=== PATIENT | female | born 1950 | race Caucasian/White ===

== ENCOUNTER 2017-02-15 10:17 | Outpatient (CLI) | payer MEDICARE, OTHER ==
--- NOTE | 2017-02-22 14:29 | MMO ---
BILATERAL SCREENING MAMMOGRAM: HISTORY: A 66-year-old female for screening mammography. COMPARISON: 03/20/14, 12/13/11. FINDINGS: Bilateral MLO and CC views of the breasts show predominantly fatty replaced breast parenchyma. Ther e are a few benign-appearing calcifications in both breasts. There is no evidence of suspicious mas s, suspicious clustered microcalcifications, or area of architectural distortion. Interpretation of this mammogram was performed with the assistance of computer-aided detection. IMPRESSION: BI-RADS category 2 - benign findings. Annual screening mammography is recommended. POS: [facility]
== END 2017-02-15 10:18 | disposition home or self-care (01) ==
LOC: MAMMO 10:17
PROVIDERS: ATTEND Family Medicine
DX: Z12.31 Encounter for screening mammogram for malignant neoplasm of breast (principal)
CPT/HCPCS: 77067; G0202

== ENCOUNTER 2017-08-14 15:53 | Outpatient (CLI) | payer MEDICARE, OTHER | END 2017-08-14 15:54 | disposition home or self-care (01) | LOC: BICRAD 15:53 | PROVIDERS: ATTEND Physician Assistant Medical | DX: M47.26 Other spondylosis with radiculopathy, lumbar region (principal); M54.5 Low back pain; Z98.1 Arthrodesis status | CPT/HCPCS: 72100 ==

== ENCOUNTER 2017-09-06 12:13 | Outpatient (CLI) | payer MEDICARE, OTHER ==
[~2017-09-06 12:13] MED LIST: Gadobenate Dimeglumine 529 MG/1 ML (20ML VIAL) ONE
--- NOTE | 2017-09-06 13:29 | RAD ---
THREE VIEWS LUMBAR SPINE: Technique: Flexion, extension and lateral views obtained. History: M54.16 Comparison: 12-03-12 FINDINGS: Images demonstrate patient with bilateral hip arthroplasties. Vacuum disc changes seen at multiple le vels including L1-2, L2-3, L3-4 and L5-S1. Anterior osteophytes are also seen. No evidence of lenka or retrolisthesis seen on flexion or extension views. IMPRESSION: Changes of spondylosis with no acute evidence of lumbar spine abnormalities seen. POS: [facility]
--- NOTE | 2017-09-06 15:23 | MRI ---
MRI LUMBAR SPINE WITH AND WITHOUT CONTRAST: Date: 09/06/17 HISTORY: Previous lumbar surgery. Low back pain, radiating down left hip and leg x3 weeks. COMPARISON: None. TECHNIQUE: Lumbar spine MRI is performed with and without intravenous Gadolinium administration. Multisequential , multiplanar imaging is performed. FINDINGS: Appropriate T1 marrow signal intensity of the lumbar vertebra. Lumbar spine vertebral body height is maintained. No fracture. 3.0 mm of retrolisthesis of L1 upon L2. Intrinsic T1 and T2 hyperintensity a t the L2 level compatible with a hemangioma. Conus medullaris terminates at the mid L1 level. Symmetric signal intensity of the psoas muscles. Bilateral parapelvic cysts are noted. On the postcontrast images, there is no abnormal enhancement of the vertebral bodies. There is no abn ormal enhancement within the thecal sac, including the cauda equina and conus medullaris. T12-L1: Adequate disc hydration. No significant central canal stenosis. Foramina patent. L1-L2: Desiccation with mild loss of disc space height. There is a broad based disc bulge with components ex tending into both subarticular bones. There is partial obscuration of bilateral traversing L1 nerve r oots. Overall, there is mild central canal stenosis. Mild to moderate bilateral neural foraminal narr owing. There is a right hemilaminotomy defect. L2-L3: Desiccation with mild loss of disc space height. There is a generalized disc bulge, ligamentum flavum thickening, and facet hypertrophy that results in mild central canal stenosis. Moderate bilateral fo raminal narrowing. There is a right hemilaminotomy defect. L3-L4: Desiccation with mild loss of disc space height. Generalized disc bulge, ligamentum flavum thickening , and facet hypertrophy result in mild central canal stenosis. Mild to moderate right and mild left f oraminal narrowing. L4-L5: Desiccation with mild loss of disc space height. There is a small amount of disc material in the left subarticular zone, extending into the left neural foramen. There is no significant stenosis of the t hecal sac. Right subarticular zone and right neural foramen are unremarkable. Disc material abuts but does not obscure the traversing left L5 nerve root. There is moderate left foraminal narrowing. L5-S1: Desiccation with severe loss of disc space height. There is a generalized disc bulge. Disc material e ncroaches upon both subarticular zones. There is mass effect without obscuration of traversing right S1 nerve root. Mass effect with partial obscuration of traversing left S1 nerve root. Moderate right and moderate to severe left foraminal narrowing. Postcontrast images demonstrate enhancing scar tissue involving the right hemilaminotomy defect at L1 -L2 and L2-L3. IMPRESSION: Postsurgical and degenerative changes of the lumbar spine as above. POS: [facility]
== END 2017-09-06 12:14 | disposition home or self-care (01) ==
LOC: SCSMRI 12:13
PROVIDERS: ATTEND Neurological Surgery
DX: M47.26 Other spondylosis with radiculopathy, lumbar region (principal)
CPT/HCPCS: 72100; 72158; 82565; A9579

== ENCOUNTER 2018-08-22 08:17 | Outpatient (CLI) | payer MEDICARE, OTHER ==
--- NOTE | 2018-08-22 09:19 | BD ---
FDEXA bone densitometry: 08/22/2018 HISTORY: 68-year-old white female for postmenopausal, age-related osteoporosis screening examination. TECHNIQUE: Because the patient's reportedly has lumbar fusion surgery, with hardware according to the patient, a nd hip surgery with hardware, this patient's bilateral distal forearms were evaluated instead of the usual DEXA of the lumbar spine and hip. Findings: Right forearm: Total bone mineral density is 0.608 g/sq cm, with T score of 0.5 and Z score of 2.5. Left forearm: Total bone mineral density is 0.601 g/sq cm, with T score of 0.4, and Z score of 2.3. IMPRESSION: Bone mineral density of the bilateral forearms is normal.
--- NOTE | 2018-09-05 15:54 | MMO ---
Bilateral MAMMO Bilat Screen [facility]. CLINICAL HISTORY: Patient is 68 years old and is seen for screening. The patient has no family history of breast cancer. The patient has no personal history of cancer. VIEWS: The views performed were: bilateral craniocaudal with tomosynthesis and bilateral mediolateral oblique with tomosynthesis. FILMS COMPARED: The present examination has been compared to prior imaging studies performed at [facility] on 11/02/2009, 11/23/2010, 12/13/2011 and 02/15/2017. MAMMOGRAM FINDINGS: There are scattered fibroglandular densities. There are stable benign appearing calcifications seen in both breasts. There are no suspicious masses, suspicious calcifications, or new areas of architectural distortion. IMPRESSION: THERE IS NO MAMMOGRAPHIC EVIDENCE OF MALIGNANCY. A ROUTINE FOLLOW-UP MAMMOGRAM IN 1 YEAR IS RECOMMENDED. THE RESULTS OF THIS EXAM WERE SENT TO THE PATIENT. ACR BI-RADS Category 2 - Benign finding MAMMOGRAPHY NOTE: 1. A negative mammogram report should not delay a biopsy if a dominant of clinically suspicious mass is present. 2. Approximately 10% to 15% of breast cancers are not detected by mammography. 3. Adenosis and dense breasts may obscure an underlying neoplasm.
== END 2018-08-22 08:18 | disposition home or self-care (01) ==
LOC: BICMAMMO 08:17
PROVIDERS: ATTEND Family Medicine
DX: Z12.31 Encounter for screening mammogram for malignant neoplasm of breast (principal); Z13.820 Encounter for screening for osteoporosis
CPT/HCPCS: 77063; 77067; 77080

== ENCOUNTER 2018-10-25 11:57 | Outpatient (CLI) | payer MEDICARE, OTHER ==
--- NOTE | 2018-10-25 15:08 | MRI ---
MRI RIGHT KNEE PERFORMED WITHOUT CONTRAST ENHANCEMENT: Date: 10/25/18 HISTORY: Patient complains of right lateral and anterior knee pain for about a month. FINDINGS: The anterior, as well as posterior cruciate ligaments are intact. The medial meniscus is normal in shape and appearance. There is a mildly truncated irregular appearan ce to the junction of the anterior horn and body of the lateral meniscus suggesting more of a chronic flap-type tear. The changes in the lateral compartment are associated with severe Grade IV chondroma lacia changes of the condyle and tibia, and underlying marrow edema changes related to the articular cartilage loss. The medial and lateral collateral ligaments, and iliotibial band regions are normal. Patellar articular cartilage is intact. The medial and lateral patellar retinaculum, and quadriceps a nd patellar tendons are normal. There is a moderate joint effusion and a large Augustine's cyst which shows a partial rupture. IMPRESSION: 1. Chronic appearing tear involving the junction of the anterior horn and body of the lateral menisc us with some mild meniscal protrusion and severe arthritic changes of the lateral compartment of the knee with Grade IV chondromalacia changes, and subchondral marrow edema changes involving both the ti pedro and lateral femoral condyle. 2. Joint effusion and large Augustine's cyst. POS: [facility]
== END 2018-10-25 11:58 | disposition home or self-care (01) ==
LOC: BICMRI 11:57
PROVIDERS: ATTEND Orthopaedic Surgery
DX: M17.11 Unilateral primary osteoarthritis, right knee (principal); S83.281D Other tear of lateral meniscus, current injury, right knee, subsequent encounter; R60.0 Localized edema; M94.261 Chondromalacia, right knee; M25.461 Effusion, right knee; M71.21 Synovial cyst of popliteal space [Baker], right knee

== ENCOUNTER 2018-12-03 13:15 | Outpatient (CLI) | payer MEDICARE, OTHER ==
[2018-12-03 14:32] LABS: #Basophils 0.1 thou/uL (0.0-0.2); #Eosinphils 0.1 thou/uL (0.0-0.7); #Lymphocytes 2.3 thou/uL (1.20-3.40); #Monocytes 0.5 thou/uL (0.11-0.59); #Neutrophils 6.9 thou/uL (1.40-6.50); %Basophils 0.5 % (0.0-1.0); %Eosinophils 1.3 % (0.0-10.0); %Lymphocytes 22.9 % (21.0-51.0); %Monocytes 5.3 % (0.0-10.0); Hemoglobin 14.5 g/dL (12.0-16.0); Mean Corpuscular HGB CONC 33.3 g/dL (32.0-36.0); Mean Corpuscular Hemoglobin 30.4 pg (27.0-31.0); Mean Corpuscular Volume 91.3 fL (78.0-98.0); Mean Platelet Volume 7.5 fL (7.4-10.4); Platelet Count 218 thou/uL (130-400); RBC Distribution Width 12.4 % (11.5-14.5); Red Blood Cell (RBC) Count 4.77 mill/uL (4.20-5.40); White Blood Cell (WBC) Count 9.9 thou/uL (4.8-10.8)
[2018-12-03 14:33] LABS: Bilirubin Negative (Negative); Blood, Urine Negative (Negative); Glucose, Urine (Dipstick) Negative (Negative); Leukocyte Negative (Negative); Nitrite Negative (Negative); Protein, Urine (Dipstick) Negative (Neg-Trace); Urobilinogen 0.2 mg/dL (Less than 2)
[2018-12-03 14:36] LABS: Clarity Clear (Clear)
[2018-12-03 14:37] LABS: INR-International Normal Ratio 0.9; Prothrombin Time 12.6 SEC (12.0-14.7)
[2018-12-03 14:40] LABS: RBC/HPF 0-3 HPF (0-3); Squamous Epithelial 0-3 HPF (0-3); WBC/HPF 0-3 HPF (0-3)
[2018-12-03 14:48] LABS: Bacteria/HPF None Seen HPF (None Seen)
[2018-12-03 14:56] LABS: Anion Gap 14 mmol/L (10-20); BUN (Urea Nitrogen) 13 mg/dL (9.8-20.1); Calc. Creatinine Clearance 0 mL/min (70-130); Calcium 9.6 mg/dL (7.8-10.44); Carbon Dioxide 24 mmol/L (23-31); Chloride 105 mmol/L (98-107); Estimated GFR-MDRD 84; Glucose 84 mg/dL (80-115); Potassium 4.2 mmol/L (3.5-5.1); Sodium 139 mmol/L (136-145)
--- NOTE | 2018-12-03 15:16 | EKG ---
Test Reason : Blood Pressure : / mmHG Vent. Rate : 062 BPM Atrial Rate : 062 BPM P-R Int : 146 ms QRS Dur : 092 ms QT Int : 402 ms P-R-T Axes : 020 061 031 degrees QTc Int : 408 ms Normal sinus rhythm Normal ECG Confirmed by MATTEO FUNK ([id number]) on 12/03/2018 3:16:24 PM Referred By: JOSE Confirmed By:MATTEO FUNK
== END 2018-12-03 13:16 | disposition home or self-care (01) ==
LOC: LABBT 13:15
PROVIDERS: ATTEND Orthopaedic Surgery
DX: Z01.818 Encounter for other preprocedural examination (principal); M17.11 Unilateral primary osteoarthritis, right knee
CPT/HCPCS: 80048; 81001; 85025; 85610; 87081; 93005; 93010

== ENCOUNTER 2018-12-11 07:30 | Inpatient (IN) | payer MEDICARE, OTHER ==
[2018-12-03 13:24] VITALS: BMI 29.2
[2018-12-11] MEDS ORDERED: Tranexamic Acid 1,000 MG/10 ML VIAL ONE (07:55)
[2018-12-11] MEDS ORDERED: Sodium Chloride 0.9% 100 ML ONE (07:55)
[2018-12-11] MEDS ORDERED: Vancomycin HCl 1.5 GM in Sodium Chloride 0.9% 250 ML 300 ML IVPB SCH (08:00)
[2018-12-11] MEDS ORDERED: Tranexamic Acid 1,000 MG in Sodium Chloride 0.9% 100 ML IVPB SCH (08:15)
[2018-12-11] MEDS ORDERED: Midazolam HCl 2 mg/2 ml Vial ONE (08:58)
[2018-12-11] MEDS ORDERED: Fentanyl 100 MCG/2 ML VIAL ONE ×4 (08:58→13:36)
[2018-12-11] MEDS ORDERED: Ropivacaine 0.2% HCl/PF (40 MG/20 ML VIAL) ONE (09:47)
[2018-12-11] MEDS ORDERED: Ropivacaine 0.5% HCl/PF (150 MG/30 ML VIAL) ONE (09:47)
[2018-12-11] MEDS ORDERED: Fentanyl 100 MCG/2 ML VIAL IV PRN (10:17)
[2018-12-11] MEDS ORDERED: traMADol HCl 50 MG TAB PO PRN ×2 (10:17)
[2018-12-11] MEDS ORDERED: Zolpidem Tartrate 5 MG TAB PO PRN ×3 (10:17→13:55)
[2018-12-11] MEDS ORDERED: Ropivacaine HCl/PF 250 ML in Premix Bag 1 BAG NERVE BLCK SCH (10:17)
[2018-12-11] MEDS ORDERED: Ondansetron PF 4 MG/2 ML Vial IVP PRN ×3 (10:17→13:55)
[2018-12-11] MEDS ORDERED: Promethazine HCl 25 MG/ML VIAL IM PRN ×4 (10:17→13:55)
[2018-12-11] MEDS ORDERED: HYDROcodone/Acetaminophen 10/325 mg Tablet PO PRN ×2 (10:17)
[2018-12-11] MEDS ORDERED: Ketorolac Tromethamine 30 MG/ML VIAL ONE (10:51)
[2018-12-11] MEDS ORDERED: Ondansetron PF 4 MG/2 ML Vial ONE (10:51)
[2018-12-11] MEDS ORDERED: PROPOFOL 200 MG/20 ML VIAL ONE (10:51)
[2018-12-11] MEDS ORDERED: Lidocaine 1% PF 5 ML VIAL ONE (10:51)
[2018-12-11] MEDS ORDERED: ePHEDrine 50 MG/ML VIAL ONE (10:51)
[2018-12-11] MEDS ORDERED: Ondansetron HCl/PF 4 MG/2 ML Vial IVP PRN (12:00)
[2018-12-11] MEDS ORDERED: Promethazine HCl 25 MG/ML VIAL SLOW IVP PRN (12:00)
[2018-12-11] MEDS ORDERED: Acetaminophen 325 MG TAB PO PRN (12:51)
[2018-12-11] MEDS ORDERED: diphenhydrAMINE 25 MG CAP PO PRN ×2 (12:51→13:55)
--- NOTE | 2018-12-11 13:20 | RAD ---
RIGHT KNEE 2 VIEWS: HISTORY: Total knee arthroplasty. Postop. FINDINGS/IMPRESSION: There are recent postop changes of total knee arthroplasty in good position and alignment. Soft tiss ue air and joint fluid are present. POS: [facility]
[2018-12-11] MEDS ORDERED: fentaNYL Citrate/PF 2,000 MCG in Sodium Chloride 0.9% 60 ML IV PRN (13:55)
[2018-12-11] MEDS ORDERED: diphenhydrAMINE 50 MG/ML VIAL IM/IV PRN (13:55)
[2018-12-11] MEDS ORDERED: Naloxone HCl 0.4 mg/ml Vial IV PRN (13:55)
--- NOTE | 2018-12-11 16:21 | OP ---
DATE OF PROCEDURE: 12/11/2018 PREOPERATIVE DIAGNOSIS: End-stage tricompartmental osteoarthritis and degenerative genu valgum, right knee. POSTOPERATIVE DIAGNOSIS: End-stage tricompartmental osteoarthritis and degenerative genu valgum, right knee. PROCEDURE PERFORMED: Cemented cruciate-sparing computer-assisted navigated right total knee arthroplasty. SURGEON: Hector Reyna MD MANAGER MENTAL HEALTH: Rich Varela PA-C ANESTHESIA: General via LMA augmented with indwelling adductor canal nerve block with a single shot sciatic block. COMPONENTS USED: [employer] Triathlon size 4 cruciate retaining cemented femoral component with a size 4 primary tibial base plate, 9 mm polyethylene fixed bearing insert, and A29 patella button. TOURNIQUET TIME: 57 minutes at 300 mmHg. ESTIMATED BLOOD LOSS: Less than 100. INPUT: 1500 crystalloid. OUTPUT: 200 mL of clear yellow urine. DRAINS: None. SPECIMENS: None. COMPLICATIONS: None. COUNTS: Correct. FINDINGS: End-stage severe degenerative tricompartmental disease, [id number] arthrosis, periarticular osteophyte formation, large serous effusion, hypertrophic synovium and changes consistent with degenerative genu valgum. INDICATION FOR SURGERY: Charmaine is a 68-year-old female, who has had progressive right knee pain and problem with standing and walking for the last 5 to 7 years. She has failed conservative management and elected to proceed with total knee arthroplasty as definitive treatment of her problem. PROCEDURE IN DETAIL: After informed consent was obtained in the preoperative holding area, the patient was taken to the operative suite where general anesthesia was induced. Once adequate level of general anesthesia was obtained, the patient was positioned and a well-padded tourniquet was placed around the right proximal thigh. The right lower extremity was then prepped and draped in the usual sterile fashion. Prior to exsanguination, a time-out was called and all members of the surgical team agreed upon site, surgeon, and patient. The extremity was then exsanguinated and the tourniquet was raised. A midline longitudinal incision was then made directly over the patella extending 2 fingerbreadths above the superior pole of the patella and 2 fingerbreadths inferior to the inferior patellar pole of the patella. Deeper subcutaneous layers were dissected sharply and local bleeding was controlled with Bovie electrocautery. A quad tendon longitudinal split was then made sharply and a median parapatellar arthrotomy was carried out both sharp and with Bovie electrocautery, carried down to 1 fingerbreadth medial to the tibial tubercle. The knee was then placed into flexion and the patella was everted nicely, and a copious fat pad ectomy was performed, allowing for greater exposure of the tibia. The computer-assisted distal femoral fiducial was then placed and pinned firmly, and the distal femoral cutting guide was pinned firmly into place. The oscillating saw was then used to remove the appropriate amount of bone. The 4-in-1 cutting block was then placed on the distal femur and the oscillating saw was used to remove the appropriate amount of bone off the anterior, posterior, and chamfer cuts. After completion of bone cuts, the anterior cruciate ligament was resected sharply and the posterior cruciate ligament retractor was placed and the tibia was subluxed for better exposure. Partial meniscectomies were carried out, and the tibial computer-assisted fiducial was pinned, and the cutting guide was placed. Oscillating saw was then used to remove the bone, with Hohmann retractors used to take care and protect the collateral ligaments. After the tibial resection was performed, a laminar hide spreader was placed in between the freshened bone cuts. The knee placed at 90 degrees and further bilateral meniscectomies were carried out, and the curved osteotome and curettage were used to remove any excess bone spurs in the posterior compartment. The trial femoral component, tibial baseplate were placed with the appropriate polyethylene trial insert with an appropriate polyethylene spacer and patellar button. The knee was taken through full range of motion with flexion and extension from 0 to 90 degrees and patellar broach squarely in the trochlea without any squinting or subluxation noted. The knee was also stable to varus and valgus stressing at 0, 15, 45, and 90 degrees of flexion. The drawer was negative. All trial components were then removed and the keel punch was used to provide the appropriate defect in the tibia with a mallet. The freshened bone cuts were copiously irrigated with pulsatile lavage of about 1.5 L to remove all excess debris. The freshened bone cuts were then dried with suction and lap sponge. The knee was placed in flexion and retractors were placed to provide access to all bone cuts. Tobramycin-impregnated methyl methacrylate cement was then placed on the freshened bone cuts and implants which were malleted firmly into place. Curettage and Snover elevators were used to remove any excess bone cement. The knee was placed into full extension and the patellar button was placed under compression, and the cement was allowed to cure. Once completed, the components were again taken through full range of motion and copious irrigation of the knee was carried out with another liter of normal saline. All components were inspected fully with full range of motion and varus and valgus stressing. There was no laxity noted and full extension was observed clinically. Primary closure was accomplished with #2 interrupted Vicryl stitch of the arthrotomy defect. This was oversewn with a #2 running Quill barbed stitch. The subcutaneous layer was then closed with a running 0 barbed Monocryl stitch and skin closure accomplished with a running subcuticular 3-0 Monocryl barbed Quill stitch and augmented with cement on the skin. Tourniquet was lowered. Good spontaneous return of distal pulses was noted clinically and a sterile dressing was applied to the incision. The procedure was terminated without any complications. The patient was awakened in the operative suite and taken to the recovery room in stable condition. Dictated by Rich Varela PA-C, for Hector Reyna MD. Job ID: [id number]
[2018-12-11] MEDS: Ketorolac Tromethamine 30 MG/ML VIAL IVP SCH ×3 (16:32→23:18)
[2018-12-11] MEDS: Sodium Chloride 0.9% 1,000 ML IV SCH ×2 (16:32→19:49)
--- NOTE | 2018-12-11 17:22 | PDOC.FPROB ---
FMR OB H&P: HPI - History of Present Illness Chief Complaint: s/p TKR; Medical consult Indentification: 68 y/o female s/p TKR History of Present Illness: 68 year old female s/p right TKR on 12/11. Consulted for medical management of HTN, hypothyroidism, type II DM well controlled, and depression. Patient states that her fluoxetine dose was recently doubled. Otherwise, she has had no medication changes. Patient endorses right knee pain currently. She was out of bed for a brief period of time today. She states that she is going to be out of bed more tomorrow. Patient denies any N/V, chest pain, shortness of breath. FMR OB H&P: Medications - Current Home Medications: Medication Instructions Recorded Confirmed Type Levothyroxine Sodium [Synthroid] 112 mcg PO QAM 01/24/13 12/15/16 History Multivitamin [Multivitamins] 1 cap PO HS 01/24/13 12/15/16 History metFORMIN HCl 500 mg PO BID-WM 01/24/13 12/15/16 History FLUoxetine HCl [Prozac] 40 mg PO HS 12/02/15 12/03/18 History Acetaminophen/Diphenhydramine 1 each PO HS 12/03/18 12/03/18 History [Tylenol Pm Ex-Strength Caplet] Ibuprofen 800 mg PO ASDIR PRN 12/03/18 12/03/18 History Losartan Potassium 100 mg PO DAILY 12/03/18 12/03/18 History Allergies/Adverse Reactions: Allergies Allergy/AdvReac Type Severity Reaction Status Date / Time adhesive Allergy Verified 12/03/18 13:25 FMR OB H&P: Vital Signs - Maternal Vital signs: Vital Signs - First Documented Temp Pulse Resp BP Pulse Ox 97.9 F 96 18 133/73 100 12/11/18 15:55 12/11/18 15:55 12/11/18 15:55 12/11/18 15:55 12/11/18 15:55 FMR OB H&P: A/P Discussion: Date/Time: 12/11/18 1721 This H&P was discussed with [] and [] who agree with the above documentation and plan.
[2018-12-11] MEDS: CEFAZOLIN 2 GM in Premix Bag 1 BAG IVPB SCH ×2 (17:33→23:18)
[2018-12-11] MEDS: Acetaminophen 1,000 MG in Premix Bag 1 BAG IVPB SCH ×2 (17:33→23:17)
[2018-12-11] MEDS: metFORMIN 500 MG TAB PO SCH (17:33)
[2018-12-11] MEDS: Aspirin 81 mg Enteric Coated Tablet PO SCH (19:46)
[2018-12-11] MEDS: FLUoxetine HCl 20 MG CAP PO SCH (19:46)
--- NOTE | 2018-12-11 20:51 | PDOC.FPRHP ---
- History of Present Illness Chief Complaint: Medical consult History of Present Illness: 68 year old female s/p TKR on 12/11. Consulted for medical management of hypothyroidism, HTN, Diabetes mellitus type II well controlled, depression, CKD stage III, and OA. Patient endorses right knee pain. She was up for a brief period of time today but plans on being a little more active tomorrow. Patient denies chest pain, N/V, shortness of breath, fever, or chills. Patient otherwise doing well during my evaluation. Patient states she recently had an increase in her fluoextine, otherwise there have been no changes to medications recently. PCP: Dr. Ruano - Allergies/Adverse Reactions Allergies Allergy/AdvReac Type Severity Reaction Status Date / Time adhesive Allergy Verified 12/03/18 13:25 - Home Medications Medication Instructions Recorded Confirmed Type Levothyroxine Sodium [Synthroid] 112 mcg PO QAM 01/24/13 12/12/18 History Multivitamin [Multivitamins] 1 cap PO HS 01/24/13 12/12/18 History metFORMIN HCl 500 mg PO BID-WM 01/24/13 12/12/18 History FLUoxetine HCl [Prozac] 40 mg PO HS 12/02/15 12/03/18 History Acetaminophen/Diphenhydramine 1 each PO HS 12/03/18 12/03/18 History [Tylenol Pm Ex-Strength Caplet] Ibuprofen 800 mg PO ASDIR PRN 12/03/18 12/03/18 History Losartan Potassium 100 mg PO DAILY 12/03/18 12/03/18 History - History PMHx: HTN, Hypothyroidism, Depression, Type II DM, CKD stage III, OA PSHx: 3 hip surgeries, right ankle surgery, lumbar laminectomy, right shoulder suregery, thyroid surgery (removal 75%), cholecystectomy, appendectomy, and tonsillectomy FHx: Noncontributory Social: Denies alcohol, tobacco, or drug use - Review of Systems General: denies: fever/chills ENT: denies: nasal congestion, rhinorrhea Respiratory: denies: cough, congestion, shortness of breath Cardiovascular: denies: chest pain, palpitation Gastrointestinal: denies: nausea, vomiting, abdominal pain Genitourinary: denies: dysuria Skin: denies: rashes Musculoskeletal: reports: pain, tenderness, stiffness Neurological: denies: numbness, syncope Psychological: reports: anxiety, depression - Vital signs BP: 133/73 HR: 96 RR: 18 Tmax: 97.9F Pox: 96% on RA Wt: 84 kg - Physical Exam Constitutional: NAD, awake, alert and oriented, well developed HEENT: EOMI, grossly normal vision, grossly normal hearing Heart: RRR, no murmurs/rubs/gallops Lungs: CTAB, no respiratory distress Abdomen: soft, bowel sounds present -Musculoskeletal: Right knee with ice pack and new bandage Neurological: no focal deficit Skin: no rash/lesions, capillary refill <2 seconds Heme/Lymphatic: no unusual bruising or bleeding Psychiatric: normal mood and affect, good judgment and insight FMR H&P: Results - Labs Result Diagrams: 12/12/18 06:46 12/12/18 06:46 FMR H&P: A/P - Problem List (1) Status post total knee replacement Current Visit: Yes Status: Acute Code(s): Z96.659 - PRESENCE OF UNSPECIFIED ARTIFICIAL KNEE JOINT (2) Type II diabetes mellitus Current Visit: Yes Status: Acute (3) CKD (chronic kidney disease), stage III Current Visit: Yes Status: Acute Code(s): N18.3 - CHRONIC KIDNEY DISEASE, STAGE 3 (MODERATE) (4) Osteoarthritis Current Visit: Yes Status: Acute Code(s): M19.90 - UNSPECIFIED OSTEOARTHRITIS, UNSPECIFIED SITE (5) Hypertension Current Visit: No Status: Chronic Code(s): I10 - ESSENTIAL (PRIMARY) HYPERTENSION Comment: controlled (6) Hypothyroidism Current Visit: No Status: Chronic Code(s): E03.9 - HYPOTHYROIDISM, UNSPECIFIED Comment: on replacement therapy - Plan S/p right total knee replacement - Surgery on 12/11 - Ortho primary team: Dr. Reyna - SCD's for DVT ppx - Early ambulation - Patient states plan for d/c on 12/13 per ortho - Hydrocodone for pain control Hypothyroidism - Hx of thyroidectomy (75%) on levothyroxine - Continue levothyroxine Depression - Continue fluoxetine - Dose recently doubled; correct dose reconciled Type II DM - Well controlled per patient - Will check AM FBG - Continue metformin CKD stage III - Per past records - No CMP recorded for this hospitalization, will check in AM HTN - BP appears well controlled - Continue home BP medications OA - Patient with several surgeries - Continue pain medications Dispo: Will follow alongside primary team for medical management. Patient's chronic medical conditions appear to be well controlled at this time. Home medications have been restarted. Thank you for the consultation. Disposition/LOS: Lora Pino DO PGY-3 FMR H&P: Upper Level - Plan Date/Time: 12/11/182045 I, [], have evaluated this patient and agree with findings/plan as outlined by art gallery internship resident. Pertinent changes/additions are listed here. Addendum - Attending - Attending Attestation Date/Time: 12/12/18 [id number] I personally evaluated the patient and discussed the management with Dr. Pino. I agree with the History, Examination, Assessment and Plan documented above with any addition or exceptions noted below.
[2018-12-11] MEDS ORDERED: Multivit, Therapeutic 1 TAB PO SCH (21:00)
[2018-12-12] MEDS: Levothyroxine Sodium 112 MCG TAB PO SCH (05:27)
[2018-12-12] MEDS: Acetaminophen 1,000 MG in Premix Bag 1 BAG IVPB SCH ×2 (05:27→12:29)
[2018-12-12] MEDS: Ketorolac Tromethamine 30 MG/ML VIAL IVP SCH ×4 (05:27→22:46)
[2018-12-12 07:03] LABS: Hemoglobin 12.2 g/dL (12.0-16.0); Mean Corpuscular HGB CONC 31.6 g/dL (32.0-36.0); Mean Corpuscular Hemoglobin 29.5 pg (27.0-31.0); Mean Corpuscular Volume 93.1 fL (78.0-98.0); Mean Platelet Volume 7.2 fL (7.4-10.4); Platelet Count 170 thou/uL (130-400); RBC Distribution Width 12.4 % (11.5-14.5); Red Blood Cell (RBC) Count 4.13 mill/uL (4.20-5.40)
--- NOTE | 2018-12-12 07:07 | PDOC.FM ---
- Subjective Subjective: NAEO. Pt denies SOB, chest pain, abdominal pain, or constipation. She reports some soreness in her leg but no sharp or unbearable pain. - Objective MAR Reviewed: Yes Vital Signs & Weight: Vital Signs (12 hours) Temp Pulse Resp BP Pulse Ox 12/12/18 03:23 98.9 F 68 18 120/69 95 12/11/18 23:40 93 L 12/11/18 23:21 99.1 F 71 18 126/65 93 L 12/11/18 21:31 98.1 F 84 16 130/71 99 12/11/18 20:00 99 Weight Weight 84.822 kg I&O: 12/11/18 12/12/18 12/13/18 06:59 06:59 06:59 Intake Total 1110 Output Total 1650 Balance -540 Result Diagrams: 12/12/18 06:46 12/12/18 06:46 Phys Exam - Physical Examination Constitutional: NAD HEENT: moist MMs Neck: no JVD, full ROM Respiratory: no wheezing, clear to auscultation bilateral Cardiovascular: RRR, no significant murmur, no rub Gastrointestinal: soft, non-tender, no distention, positive bowel sounds Musculoskeletal: pulses present, edema present (below right knee, nonpitting) Neurological: non-focal, normal sensation, moves all 4 limbs Psychiatric: A&O x 3 Skin: cap refill <2 seconds Dx/Plan (1) CKD (chronic kidney disease), stage III Code(s): N18.3 - CHRONIC KIDNEY DISEASE, STAGE 3 (MODERATE) Status: Acute (2) Status post total knee replacement Code(s): Z96.659 - PRESENCE OF UNSPECIFIED ARTIFICIAL KNEE JOINT Status: Acute (3) Type II diabetes mellitus Status: Acute (4) Hypertension Code(s): I10 - ESSENTIAL (PRIMARY) HYPERTENSION Status: Chronic (5) Hypothyroidism Code(s): E03.9 - HYPOTHYROIDISM, UNSPECIFIED Status: Chronic - Plan Plan: This is a 68 yo female with a pmh of HTN, DM2, HTN, hypothyroidism S/P right total knee replacement POD #1 -Surgery on 12/11 -Ortho primary team: Dr. Reyna -Early ambulation and PT -Currently on fentanyl block, toradol, and IV acetaminophen for pain control Hypothyroidism -Continue home levothyroxine Depression -Continue fluoxetine DM2 -FBG is 142 -Continue metformin CKD3, per prior report, however CMP shows normal function HTN -At goal, continue home meds OA -Continue pain medications Addendum - Attending - Attending Attestation Date/Time: 12/12/18 1131 I personally evaluated the patient and discussed the management with Dr. Villegas I agree with the History, Examination, Assessment and Plan documented above with any addition or exceptions noted below.
[2018-12-12 07:26] LABS: ALT (SGPT) 13 U/L (8-55); AST (SGOT) 17 U/L (5-34); Albumin 3.4 g/dL (3.4-4.8); Alkaline Phosphatase 93 U/L (40-150); Anion Gap 11 mmol/L (10-20); BUN (Urea Nitrogen) 9 mg/dL (9.8-20.1); Bilirubin, Total 0.4 mg/dL (0.2-1.2); Calc. Creatinine Clearance 121 mL/min (70-130); Calcium 8.7 mg/dL (7.8-10.44); Carbon Dioxide 24 mmol/L (23-31); Chloride 105 mmol/L (98-107); Estimated GFR-MDRD Greater than 90; Globulin 2.3 g/dL (2.4-3.5); Glucose 142 mg/dL (80-115); Potassium 3.8 mmol/L (3.5-5.1); Protein, Total 5.7 g/dL (6.0-8.3); Sodium 136 mmol/L (136-145)
[2018-12-12] MEDS: Losartan 25 MG TAB PO SCH (09:18)
[2018-12-12] MEDS: Multivitamin W/ Minerals 1 TAB PO SCH (09:18)
[2018-12-12] MEDS: Ferrous Gluconate 324 MG TAB PO SCH ×2 (09:18→16:53)
[2018-12-12] MEDS: Aspirin 81 mg Enteric Coated Tablet PO SCH ×2 (09:18→20:18)
[2018-12-12] MEDS: metFORMIN 500 MG TAB PO SCH ×2 (09:19→16:53)
[2018-12-12] MEDS: Sodium Chloride 0.9% 1,000 ML IV SCH (09:22)
[2018-12-12] MEDS: Senokot S 8.6-50 MG TAB PO SCH ×2 (09:22→20:18)
[2018-12-12] MEDS ORDERED: HYDROcodone/Acetaminophen 10/325 mg Tablet PO PRN (09:58)
[2018-12-12] MEDS ORDERED: traMADol HCl 50 MG TAB PO PRN ×2 (09:59)
[2018-12-12] MEDS ORDERED: Fentanyl 100 MCG/2 ML VIAL SLOW IVP PRN (09:59)
[2018-12-12] MEDS: HYDROcodone/Acetaminophen 10/325 mg Tablet PO PRN ×2 (12:29→22:47)
--- NOTE | 2018-12-12 16:52 | PRG ---
DATE OF SERVICE: 12/12/2018 SUBJECTIVE: Charmaine is a 68-year-old white female, postop day 1 from right total knee arthroplasty. She is doing very well. She is comfortable today and she has no complaints. OBJECTIVE: VITAL SIGNS: She is afebrile. Vital signs are stable. GENERAL: She is alert and oriented to person, place, time, situation, grossly nonfocal, and appropriate responsive to examiner. SKIN: Her incision is clean and closed. No erythema. She has no shortening and no malrotation. NEUROLOGIC: She is neurovascularly intact in the right lower extremity. LABORATORY DATA: Hemoglobin and hematocrit 12 and 38. IMPRESSION: A 68-year-old female postop day 1, right total knee arthroplasty, doing well. PLAN: Continue current care, probable discharge tomorrow. Job ID: [id number]
[2018-12-12] MEDS ORDERED: Acetaminophen 500 MG TAB PO PRN (18:00)
[2018-12-12] MEDS: FLUoxetine HCl 20 MG CAP PO SCH (20:18)
[2018-12-13] MEDS: HYDROcodone/Acetaminophen 10/325 mg Tablet PO PRN (06:06)
[2018-12-13] MEDS: Levothyroxine Sodium 112 MCG TAB PO SCH (06:07)
[2018-12-13] MEDS: Ketorolac Tromethamine 30 MG/ML VIAL IVP SCH (06:09)
[2018-12-13 06:42] LABS: Mean Corpuscular HGB CONC 30.7 g/dL (32.0-36.0); Mean Corpuscular Hemoglobin 28.4 pg (27.0-31.0); Mean Corpuscular Volume 92.6 fL (78.0-98.0); Mean Platelet Volume 7.6 fL (7.4-10.4); Platelet Count 172 thou/uL (130-400); RBC Distribution Width 12.2 % (11.5-14.5); Red Blood Cell (RBC) Count 4.21 mill/uL (4.20-5.40); White Blood Cell (WBC) Count 11.7 thou/uL (4.8-10.8)
[2018-12-13] MEDS ORDERED: Acetaminophen 325 MG TAB PO PRN (06:43)
--- NOTE | 2018-12-13 06:45 | PDOC.FM ---
- Subjective Subjective: NAEO. Pt reports increased soreness in her RLE and decreased swelling. She states she has been working PT and making some progress. - Objective MAR Reviewed: Yes Vital Signs & Weight: Vital Signs (12 hours) Temp Pulse Resp BP Pulse Ox 12/13/18 04:20 99.2 F 71 16 145/73 H 90 L 12/12/18 23:45 99.5 F 77 16 144/69 H 90 L 12/12/18 20:00 92 L 12/12/18 19:42 99.9 F H 67 16 130/76 91 L Weight Admit Weight 84.822 kg Weight 84.822 kg I&O: 12/11/18 12/12/18 12/13/18 06:59 06:59 06:59 Intake Total 1110 430 Output Total 1650 Balance -540 430 Result Diagrams: 12/13/18 06:25 12/12/18 06:46 Phys Exam - Physical Examination Constitutional: NAD HEENT: moist MMs Neck: no JVD, full ROM Respiratory: no wheezing, no rales, clear to auscultation bilateral Cardiovascular: RRR Gastrointestinal: soft, non-tender Musculoskeletal: pulses present, edema present (Improving nonpitting edema in right LE) Neurological: normal sensation, moves all 4 limbs Lymphatic: no nodes Psychiatric: normal affect, A&O x 3 Skin: cap refill <2 seconds Dx/Plan (1) CKD (chronic kidney disease), stage III Code(s): N18.3 - CHRONIC KIDNEY DISEASE, STAGE 3 (MODERATE) Status: Acute (2) Status post total knee replacement Code(s): Z96.659 - PRESENCE OF UNSPECIFIED ARTIFICIAL KNEE JOINT Status: Acute (3) Type II diabetes mellitus Status: Acute (4) Hypertension Code(s): I10 - ESSENTIAL (PRIMARY) HYPERTENSION Status: Chronic (5) Hypothyroidism Code(s): E03.9 - HYPOTHYROIDISM, UNSPECIFIED Status: Chronic - Plan Plan: This is a 68 yo female with a pmh of HTN, DM2, HTN, hypothyroidism S/P right total knee replacement POD #2 -Surgery on 12/11 -Ortho primary team: Dr. Reyna -Early ambulation and PT -Currently on fentanyl, tylenol, [place], tramadol, pain control Hypothyroidism -Continue home levothyroxine Depression -Continue fluoxetine DM2 -FBG is 142 -Continue metformin CKD3, per prior report, however CMP shows normal function HTN -At goal, continue home meds OA -Continue pain medications Addendum - Attending - Attending Attestation Date/Time: 12/13/18 3916 I personally evaluated the patient and discussed the management with Dr. Villegas I agree with the History, Examination, Assessment and Plan documented above with any addition or exceptions noted below. Will f/u with Dr Ruano ongoing medical issues as outpatient.
[2018-12-13] MEDS: Losartan 25 MG TAB PO SCH (08:59)
[2018-12-13] MEDS: metFORMIN 500 MG TAB PO SCH (08:59)
[2018-12-13] MEDS: Multivitamin W/ Minerals 1 TAB PO SCH (08:59)
[2018-12-13] MEDS: Aspirin 81 mg Enteric Coated Tablet PO SCH (08:59)
[2018-12-13] MEDS: Ferrous Gluconate 324 MG TAB PO SCH (08:59)
[2018-12-13] MEDS: Senokot S 8.6-50 MG TAB PO SCH (09:00)
[2018-12-13 11:33] VITALS: BP 177/76; TEMP 98.1
== END 2018-12-13 13:50 | disposition home or self-care (01) | DRG 470 ==
LOC: SDC 07:30 → SURG B 15:18
PROVIDERS: ADMIT Orthopaedic Surgery; ATTEND Orthopaedic Surgery
PROC: 0SRC0J9 Replacement of Right Knee Joint with Synthetic Substitute, Cemented, Open Approach (ICD-10-PCS; principal; 2018-12-11)
PROC: 8E0YXBZ Computer Assisted Procedure of Lower Extremity (ICD-10-PCS; 2018-12-11)
DX: M17.11 Unilateral primary osteoarthritis, right knee (principal); M21.061 Valgus deformity, not elsewhere classified, right knee; E03.9 Hypothyroidism, unspecified; E11.22 Type 2 diabetes mellitus with diabetic chronic kidney disease; N18.3 Chronic kidney disease, stage 3 (moderate); F32.9 Major depressive disorder, single episode, unspecified; I12.9 Hypertensive chronic kidney disease with stage 1 through stage 4 chronic kidney disease, or unspecified chronic kidney disease; Z79.899 Other long term (current) drug therapy; Z79.84 Long term (current) use of oral hypoglycemic drugs; Z90.49 Acquired absence of other specified parts of digestive tract
CPT/HCPCS: 36415; 80053; 85027; C1713; C1776; J0131; J0690; J1885; J2001; J2250; J2405; J2704; J2795; J3010; J3370; J3490; J7050

== ENCOUNTER 2019-01-01 13:28 | Outpatient (CLI) | payer MEDICARE, OTHER ==
--- NOTE | 2019-01-01 16:30 | ULT ---
RIGHT LOWER EXTREMITY VENOUS ULTRASOUND WITH DOPPLER DUPLEX: CPT: 99620 ICD-10-PCS: B54D INDICATIONS: Right lower extremity pain. TECHNIQUE: Color-flow Doppler, spectral wave-form analysis of pulsed Doppler, and oakley-scale imaging with compre ssion and augmentation, were used to evaluate the bilateral common femoral, femoral, popliteal, poste rior tibial, and superficial femoral veins, and the proximal portions of the profunda femoral and gre ater saphenous veins. FINDINGS: There is appropriate compressibility and flow within the imaged deep venous system of the right lower extremity. Note is made that the mid region of the right femoral vein is obscured by overlying cachorro a. IMPRESSION: 1. No deep venous thrombosis visualized within the right lower extremity, within limitations. 2. Soft tissue edema. Correlate clinically. POS: [facility]
== END 2019-01-01 13:29 | disposition home or self-care (01) ==
LOC: ULT 13:28
PROVIDERS: ATTEND Family Medicine
DX: M79.604 Pain in right leg (principal); R60.0 Localized edema

== ENCOUNTER 2021-10-07 07:45 | Outpatient (CLI) | payer MEDICARE, OTHER | END 2021-10-07 07:46 | disposition home or self-care (01) | LOC: BICMAMMO 07:45 | PROVIDERS: ATTEND Family Medicine | DX: Z12.31 Encounter for screening mammogram for malignant neoplasm of breast (principal) | CPT/HCPCS: 77063; 77067 ==

== ENCOUNTER 2025-04-15 08:08 | Outpatient (CLI) | payer MEDICARE, OTHER | END 2025-04-15 08:09 | disposition home or self-care (01) | LOC: BICMAMMO 08:08 | PROVIDERS: ATTEND Family Medicine | DX: Z12.31 Encounter for screening mammogram for malignant neoplasm of breast (principal) | CPT/HCPCS: 77063; 77067 ==